=== PATIENT | male | born 1970 | race Caucasian/White ===

== ENCOUNTER 2024-11-15 12:11 | Inpatient (IN) | payer OTHER ==
[2024-11-15 12:31] VITALS: BMI 22.9
[2024-11-15] MEDS ORDERED: DICYCLOMINE HCL 10 MG CAPSULE PO PRN (12:46)
[2024-11-15] MEDS ORDERED: LOPERAMIDE HCL 2 MG CAPSULE PO PRN (12:46)
[2024-11-15] MEDS ORDERED: BENZOCAINE/MENTHOL (CHLORASEPTIC ) LOZENGE MM PRN (12:46)
[2024-11-15] MEDS ORDERED: MAGNESIUM HYDROX 2400MG/30ML ORAL SUSPENSION 30 ML CUP PO PRN (12:46)
[2024-11-15] MEDS ORDERED: MAG HYDROX/AL HYDROX/SIMETH 30 ML UNIT-DOSE CUP PO PRN (12:46)
[2024-11-15] MEDS ORDERED: hydrOXYzine PAMOATE 25 MG CAPSULE (FP) PO PRN (12:46)
[2024-11-15] MEDS ORDERED: ONDANSETRON *ODT* 4 MG TABLET SL PRN (12:46)
[2024-11-15] MEDS ORDERED: BENZONATATE 200 MG CAPSULE PO PRN (12:46)
[2024-11-15] MEDS ORDERED: IBUPROFEN 400 MG TABLET (FP) PO PRN (12:46)
[2024-11-15] MEDS ORDERED: ACETAMINOPHEN 325 MG TABLET (FP) PO PRN (12:46)
[2024-11-15] MEDS ORDERED: BISMUTH SUBSALICYLATE 524 MG/30 ML PO PRN (12:46)
[2024-11-15] MEDS ORDERED: METHOCARBAMOL 500 MG TABLET PO PRN (12:46)
[2024-11-15] MEDS ORDERED: POLYETHYLENE GLYCOL (HEALTHYLAX) 3350 17 GM PACKET PO PRN (12:46)
[2024-11-15] MEDS ORDERED: guaiFENesin 600 MG TABLET.ER (FP) PO PRN (12:46)
[2024-11-15] MEDS ORDERED: NALOXONE (NARCAN) HCL 4 MG/0.1 ML SPRAY NS PRN (12:46)
[2024-11-15] MEDS ORDERED: amLODIPine BESYLATE 5 MG TABLET (FP) ONE ×2 (13:35→13:39)
[2024-11-15] MEDS ORDERED: diazePAM 5 MG TABLET ONE (13:35)
[2024-11-15] MEDS: amLODIPine BESYLATE 5 MG TABLET (FP) PO ONE (13:38)
[2024-11-15] MEDS: diazePAM 5 MG TABLET PO SCH (13:39)
[2024-11-15] MEDS: ACAMPROSATE CALCIUM 333 MG TABLET.DR PO SCH (13:57)
[2024-11-15] MEDS ORDERED: methaDONE HCL 10 MG TABLET PO ONE (17:00)
[2024-11-15] MEDS: MELATONIN 5 MG TABLETS PO SCH (22:07)
[2024-11-15] MEDS: MIRTAZAPINE 15 MG TABLET (FP) PO SCH (22:07)
[2024-11-15] MEDS: QUEtiapine FUMARATE 100 MG TABLET (FP) PO SCH (22:07)
[2024-11-15] MEDS: THIAMINE 100 MG TABLET PO SCH (22:07)
[2024-11-16] MEDS ORDERED: methaDONE HCL 10 MG TABLET PO SCH ×2 (06:00→15:00)
[2024-11-16 10:16] LABS: POTASSIUM 4.2 mmol/L (3.5-5.1)
[2024-11-16 10:20] LABS: ALBUMIN 3.3 g/dl (3.4-5.0)
[2024-11-16 10:22] LABS: HEMATOCRIT 38.2 % (35.4-49); HEMOGLOBIN 12.7 GM/dL (11.7-16.9); MCH 27.4 pg (25.7-33.7); MCHC 33.2 g/dl (32.0-35.9); MEAN CELL VOLUME 82.5 fl (80-96); MEAN PLT VOLUME 9.7 fl (7.5-11.1); PLATELET COUNT 175 10^3/uL (134-434); RBC 4.62 M/mm3 (4.00-5.60); RDW 15.9 % (11.9-15.9); WHITE BLOOD COUNT 6.7 K/mm3 (4.0-10.0)
[2024-11-16 10:23] LABS: CREATININE 0.6 mg/dL (0.55-1.3)
[2024-11-16 10:24] LABS: BILIRUBIN,TOTAL 0.4 mg/dL (0.2-1); TOT PROT 6.4 g/dl (6.4-8.2)
[2024-11-16 10:26] LABS: BLOOD UREA NITROGEN 11.2 mg/dL (7-18)
[2024-11-16] MEDS: PRENATAL VITAMINS W/ FOLIC ACID TABLET (FP) PO SCH (10:26)
[2024-11-16] MEDS: amLODIPine BESYLATE 10 MG TABLET (FP) PO SCH (10:26)
[2024-11-16] MEDS: IBUPROFEN 600 MG TABLET (FP) PO PRN (17:34)
[2024-11-16] MEDS: DIVALPROEX SODIUM 500 MG TABLET E.C. PO SCH (22:12)
[2024-11-16] MEDS: QUEtiapine FUMARATE 100 MG TABLET (FP) PO SCH (22:12)
[2024-11-17] MEDS: diazePAM 5 MG TABLET PO SCH (05:43)
[2024-11-17] MEDS: NICOTINE POLACRILEX 2 MG GUM BUC PRN (14:07)
[2024-11-18] MEDS: diazePAM 5 MG TABLET PO SCH (06:02)
[2024-11-18] MEDS: diazePAM 5 MG TABLET PO PRN (10:32)
[2024-11-19] MEDS: diazePAM 5 MG TABLET PO ONE (05:29)
[2024-11-19 06:24] VITALS: RESP 16
[2024-11-19 09:30] VITALS: BP 114/63; PULSE 72; TEMP 97.8
== END 2024-11-19 11:57 | disposition other institution (70) | DRG 773 ==
LOC: YASAS 12:11 → Y3N 13:29
PROVIDERS: ADMIT Allergy & Immunology; ATTEND Allergy & Immunology
PROC: HZ2ZZZZ Detoxification Services for Substance Abuse Treatment (ICD-10-PCS; principal; 2024-11-15)
DX: F10.230 Alcohol dependence with withdrawal, uncomplicated (principal); F13.230 Sedative, hypnotic or anxiolytic dependence with withdrawal, uncomplicated; F11.20 Opioid dependence, uncomplicated; F14.20 Cocaine dependence, uncomplicated; F17.210 Nicotine dependence, cigarettes, uncomplicated; F31.9 Bipolar disorder, unspecified; F25.9 Schizoaffective disorder, unspecified; I10 Essential (primary) hypertension
CPT/HCPCS: 36415; 80053; 80305; 80307; 85027; 86780; 93005; 93010

== ENCOUNTER 2024-11-19 12:01 | Inpatient (IN) | payer OTHER ==
[2024-11-19] MEDS ORDERED: NALOXONE HCL 0.4 MG/ML VIAL IVPUSH PRN (13:57)
[2024-11-19] MEDS ORDERED: BENZOCAINE/MENTHOL (CHLORASEPTIC ) LOZENGE MM PRN (13:57)
[2024-11-19] MEDS ORDERED: NALOXONE (NARCAN) HCL 4 MG/0.1 ML SPRAY NS PRN (13:57)
[2024-11-19] MEDS ORDERED: POLYETHYLENE GLYCOL (HEALTHYLAX) 3350 17 GM PACKET PO PRN (13:57)
[2024-11-19] MEDS ORDERED: IBUPROFEN 400 MG TABLET (FP) PO PRN (13:57)
[2024-11-19] MEDS ORDERED: BENZONATATE 200 MG CAPSULE PO PRN (13:57)
[2024-11-19] MEDS ORDERED: ACETAMINOPHEN 325 MG TABLET (FP) PO PRN (13:57)
[2024-11-19] MEDS ORDERED: guaiFENesin 600 MG TABLET.ER (FP) PO PRN (13:57)
[2024-11-19] MEDS ORDERED: MAGNESIUM HYDROX 2400MG/30ML ORAL SUSPENSION 30 ML CUP PO PRN (13:57)
[2024-11-19] MEDS ORDERED: LOPERAMIDE HCL 2 MG CAPSULE PO PRN (13:57)
[2024-11-19] MEDS ORDERED: methaDONE HCL 10 MG TABLET PO ONE (13:59)
[2024-11-19] MEDS: ACAMPROSATE CALCIUM 333 MG TABLET.DR PO SCH (14:53)
[2024-11-19] MEDS: THIAMINE 100 MG TABLET PO SCH (21:59)
[2024-11-19] MEDS: MELATONIN 5 MG TABLETS PO SCH (21:59)
[2024-11-19] MEDS: DIVALPROEX NA *ER* EXTEND REL 500 MG TABLET.SA (FP) PO SCH (21:59)
[2024-11-19] MEDS: QUEtiapine FUMARATE 100 MG TABLET (FP) PO SCH (21:59)
[2024-11-20] MEDS ORDERED: methaDONE HCL 10 MG TABLET PO SCH (06:00)
[2024-11-20] MEDS: PRENATAL VITAMINS W/ FOLIC ACID TABLET (FP) PO SCH (10:03)
[2024-11-20] MEDS: hydrOXYzine PAMOATE 25 MG CAPSULE (FP) PO PRN (17:43)
[2024-11-20] MEDS: METHOCARBAMOL 500 MG TABLET PO PRN (17:43)
[2024-11-20] MEDS: MAG HYDROX/AL HYDROX/SIMETH 30 ML UNIT-DOSE CUP PO PRN (21:16)
[2024-11-21] MEDS: hydrOXYzine PAMOATE 50 MG CAPSULE (FP) PO PRN (14:46)
[2024-11-21] MEDS: QUEtiapine FUMARATE 200 MG TABLET PO SCH (21:12)
[2024-11-22] MEDS: QUEtiapine FUMARATE 300 MG TABLET PO SCH (21:16)
[2024-11-23] MEDS: PALIPERIDONE 6 MG PO SCH (12:15)
[2024-11-23] MEDS ORDERED: QUEtiapine FUMARATE 100 MG TABLET (FP) ONE (21:12)
[2024-11-24] MEDS: NICOTINE POLACRILEX 2 MG GUM BUC PRN (14:08)
[2024-11-25] MEDS ORDERED: QUEtiapine FUMARATE 100 MG TABLET (FP) ONE (19:47)
[2024-11-26] MEDS: IBUPROFEN 600 MG TABLET (FP) PO PRN (11:12)
[2024-11-26] MEDS ORDERED: QUEtiapine FUMARATE 100 MG TABLET (FP) ONE (20:15)
[2024-11-27] MEDS: BACLOFEN 10 MG TABLET (FP) PO SCH (21:24)
[2024-11-28] MEDS: PALIPERIDONE 6 MG TAB.ER.24 PO SCH (10:24)
[2024-11-28 13:06] LABS: POTASSIUM 4.2 mmol/L (3.5-5.1)
[2024-11-28 13:12] LABS: INR 1.05 (0.83-1.09); PROTHROMBIN TIME (PATIENT) 11.6 SEC (9.7-13.0)
[2024-11-28 13:13] LABS: CALCIUM 9.3 mg/dL (8.5-10.1)
[2024-11-28 13:14] LABS: ALBUMIN 3.2 g/dl (3.4-5.0); BLOOD UREA NITROGEN 18.7 mg/dL (7-18); MAGNESIUM 1.9 mg/dL (1.8-2.4)
[2024-11-28 13:17] LABS: CREATININE 0.8 mg/dL (0.55-1.3)
[2024-11-28 13:18] LABS: BILIRUBIN,TOTAL 0.6 mg/dL (0.2-1); TOT PROT 6.3 g/dl (6.4-8.2)
[2024-11-28] MEDS: GABAPENTIN 100 MG CAPSULE PO SCH (14:10)
[2024-11-28] MEDS: hydrOXYzine PAMOATE 50 MG CAPSULE (FP) PO PRN (15:44)
[2024-11-28] MEDS: MELATONIN 5 MG TABLETS PO SCH (21:11)
[2024-11-29] MEDS: GABAPENTIN 100 MG CAPSULE PO SCH (13:52)
[2024-11-29] MEDS: SUVOREXANT 5 MG TABLET PO PRN (21:31)
[2024-12-01] MEDS ORDERED: QUEtiapine FUMARATE 100 MG TABLET (FP) ONE (20:25)
[2024-12-01] MEDS ORDERED: SUVOREXANT 10 MG TABLET PO PRN ×2 (22:00)
[2024-12-01] MEDS ORDERED: SUVOREXANT 5 MG TABLET PO PRN (22:00)
[2024-12-02] MEDS ORDERED: QUEtiapine FUMARATE 100 MG TABLET (FP) ONE (21:03)
[2024-12-03 06:44] VITALS: RESP 17
[2024-12-04 05:41] VITALS: BP 102/57; PULSE 60; TEMP 97.5
[2024-12-04] MEDS ORDERED: SUVOREXANT 5 MG TABLET PO PRN (22:00)
== END 2024-12-04 09:27 | disposition home or self-care (01) | DRG 772 ==
LOC: YASAS 12:01 → Y3NR 12:02 → Y3W 11-20 10:21
PROVIDERS: ADMIT Allergy & Immunology; ATTEND Psychiatry & Neurology Pain Medicine
PROC: HZ42ZZZ Group Counseling for Substance Abuse Treatment, Cognitive-Behavioral (ICD-10-PCS; principal; 2024-11-19)
DX: F11.20 Opioid dependence, uncomplicated (principal); F10.20 Alcohol dependence, uncomplicated; F13.20 Sedative, hypnotic or anxiolytic dependence, uncomplicated; F14.20 Cocaine dependence, uncomplicated; F17.210 Nicotine dependence, cigarettes, uncomplicated; F25.9 Schizoaffective disorder, unspecified; F19.282 Other psychoactive substance dependence with psychoactive substance-induced sleep disorder; F19.280 Other psychoactive substance dependence with psychoactive substance-induced anxiety disorder; F19.24 Other psychoactive substance dependence with psychoactive substance-induced mood disorder; I10 Essential (primary) hypertension; Z86.19 Personal history of other infectious and parasitic diseases
CPT/HCPCS: 36415; 80053; 82140; 83735; 85610; 86803; 87522; 87811; J0475

== ENCOUNTER 2025-01-29 11:43 | Inpatient (IN) | payer OTHER ==
[2025-01-29 12:16] VITALS: BMI 24.7
[2025-01-29] MEDS ORDERED: MAG HYDROX/AL HYDROX/SIMETH 30 ML UNIT-DOSE CUP PO PRN (12:48)
[2025-01-29] MEDS ORDERED: IBUPROFEN 400 MG TABLET (FP) PO PRN (12:48)
[2025-01-29] MEDS ORDERED: MAGNESIUM HYDROX 2400MG/30ML ORAL SUSPENSION 30 ML CUP PO PRN (12:48)
[2025-01-29] MEDS ORDERED: NALOXONE (NARCAN) HCL 4 MG/0.1 ML SPRAY NS PRN (12:48)
[2025-01-29] MEDS ORDERED: BENZONATATE 200 MG CAPSULE PO PRN (12:48)
[2025-01-29] MEDS ORDERED: ONDANSETRON *ODT* 4 MG TABLET SL PRN (12:48)
[2025-01-29] MEDS ORDERED: guaiFENesin 600 MG TABLET.ER (FP) PO PRN (12:48)
[2025-01-29] MEDS ORDERED: ACETAMINOPHEN 325 MG TABLET (FP) PO PRN (12:48)
[2025-01-29] MEDS ORDERED: BENZOCAINE/MENTHOL (CHLORASEPTIC ) LOZENGE MM PRN (12:48)
[2025-01-29] MEDS ORDERED: IBUPROFEN 600 MG TABLET (FP) PO PRN (12:48)
[2025-01-29] MEDS ORDERED: BISMUTH SUBSALICYLATE 524 MG/30 ML PO PRN (12:48)
[2025-01-29] MEDS ORDERED: LOPERAMIDE HCL 2 MG CAPSULE PO PRN (12:48)
[2025-01-29] MEDS ORDERED: POLYETHYLENE GLYCOL (HEALTHYLAX) 3350 17 GM PACKET PO PRN (12:48)
[2025-01-29] MEDS ORDERED: DICYCLOMINE HCL 10 MG CAPSULE PO PRN (12:48)
[2025-01-29] MEDS: ACAMPROSATE CALCIUM 333 MG TABLET.DR PO SCH (14:32)
[2025-01-29] MEDS: diazePAM 5 MG TABLET PO SCH (17:40)
[2025-01-29] MEDS: THIAMINE 100 MG TABLET PO SCH (22:44)
[2025-01-29] MEDS: MIRTAZAPINE 15 MG TABLET (FP) PO SCH (22:44)
[2025-01-29] MEDS: MELATONIN 5 MG TABLETS PO SCH (22:46)
[2025-01-30] MEDS ORDERED: methaDONE HCL 10 MG TABLET PO SCH (06:00)
[2025-01-30] MEDS ORDERED: NICOTINE 14 MG/24 HOURS TOPICAL PATCH TD SCH (10:00)
[2025-01-30] MEDS: PRENATAL VITAMINS W/ FOLIC ACID TABLET (FP) PO SCH (10:18)
[2025-01-30] MEDS: DIVALPROEX SODIUM 500 MG TABLET E.C. PO SCH (13:39)
[2025-01-30] MEDS: diazePAM 5 MG TABLET PO PRN (13:41)
[2025-01-30 15:06] LABS: MEAN CELL VOLUME 86.4 fl (79.0-92.2)
[2025-01-30 15:07] LABS: HEMATOCRIT 43.1 % (40.1-51.0); MCHC 32.5 g/dl (32.3-36.5)
[2025-01-30 15:14] LABS: POTASSIUM 4.6 mmol/L (3.5-5.1)
[2025-01-30 15:37] LABS: ALBUMIN 3.9 g/dl (3.4-5.0)
[2025-01-30 15:38] LABS: BLOOD UREA NITROGEN 12.5 mg/dL (7-18); CALCIUM 9.6 mg/dL (8.5-10.1)
[2025-01-30 15:41] LABS: CREATININE 0.8 mg/dL (0.55-1.3)
[2025-01-30 15:43] LABS: BILIRUBIN,TOTAL 0.6 mg/dL (0.2-1); TOT PROT 7.4 g/dl (6.4-8.2)
[2025-01-30] MEDS: METHOCARBAMOL 500 MG TABLET PO PRN (22:13)
[2025-01-30] MEDS: QUEtiapine FUMARATE 200 MG TABLET PO SCH (22:13)
[2025-01-31] MEDS: diazePAM 5 MG TABLET PO SCH (05:38)
[2025-01-31] MEDS: NICOTINE POLACRILEX 2 MG GUM BUC PRN (17:20)
[2025-02-01] MEDS: diazePAM 5 MG TABLET PO SCH (05:35)
[2025-02-01 17:39] VITALS: RESP 16
[2025-02-02] MEDS: diazePAM 5 MG TABLET PO ONE (05:45)
[2025-02-02] MEDS: hydrOXYzine PAMOATE 25 MG CAPSULE (FP) PO PRN (10:14)
[2025-02-02 13:14] VITALS: BP 107/60; PULSE 76; TEMP 97.6
== END 2025-02-02 14:49 | disposition home or self-care (01) | DRG 773 ==
LOC: YASAS 11:43 → Y6N 13:54
PROVIDERS: ADMIT Allergy & Immunology; ATTEND Allergy & Immunology
PROC: HZ2ZZZZ Detoxification Services for Substance Abuse Treatment (ICD-10-PCS; principal; 2025-01-29)
DX: F10.20 Alcohol dependence, uncomplicated (principal); F13.230 Sedative, hypnotic or anxiolytic dependence with withdrawal, uncomplicated; F11.20 Opioid dependence, uncomplicated; F14.10 Cocaine abuse, uncomplicated; F17.210 Nicotine dependence, cigarettes, uncomplicated; F31.9 Bipolar disorder, unspecified; F19.282 Other psychoactive substance dependence with psychoactive substance-induced sleep disorder; F19.280 Other psychoactive substance dependence with psychoactive substance-induced anxiety disorder; F19.24 Other psychoactive substance dependence with psychoactive substance-induced mood disorder; F90.9 Attention-deficit hyperactivity disorder, unspecified type; I10 Essential (primary) hypertension; Z86.19 Personal history of other infectious and parasitic diseases
CPT/HCPCS: 36415; 80053; 80305; 80307; 85027; 86780; 86803; 87522; 87811; 93005; 93010

== ENCOUNTER 2025-05-11 13:59 | Inpatient (IN) | payer OTHER ==
[2025-05-11 14:34] VITALS: BMI 22.4
[2025-05-11] MEDS ORDERED: BISMUTH SUBSALICYLATE 524 MG/30 ML PO PRN (15:08)
[2025-05-11] MEDS ORDERED: POLYETHYLENE GLYCOL (HEALTHYLAX) 3350 17 GM PACKET PO PRN (15:08)
[2025-05-11] MEDS ORDERED: LOPERAMIDE HCL 2 MG CAPSULE PO PRN (15:08)
[2025-05-11] MEDS ORDERED: IBUPROFEN 400 MG TABLET (FP) PO PRN (15:08)
[2025-05-11] MEDS ORDERED: ACETAMINOPHEN 325 MG TABLET (FP) PO PRN (15:08)
[2025-05-11] MEDS ORDERED: MAG HYDROX/AL HYDROX/SIMETH 30 ML UNIT-DOSE CUP PO PRN (15:08)
[2025-05-11] MEDS ORDERED: IBUPROFEN 600 MG TABLET (FP) PO PRN (15:08)
[2025-05-11] MEDS ORDERED: NALOXONE (NARCAN) HCL 4 MG/0.1 ML SPRAY NS PRN (15:08)
[2025-05-11] MEDS ORDERED: BENZONATATE 200 MG CAPSULE PO PRN (15:08)
[2025-05-11] MEDS ORDERED: DICYCLOMINE HCL 10 MG CAPSULE PO PRN (15:08)
[2025-05-11] MEDS ORDERED: MAGNESIUM HYDROX 2400MG/30ML ORAL SUSPENSION 30 ML CUP PO PRN (15:08)
[2025-05-11] MEDS ORDERED: guaiFENesin 600 MG TABLET.ER (FP) PO PRN (15:08)
[2025-05-11] MEDS ORDERED: ONDANSETRON *ODT* 4 MG TABLET SL PRN (15:08)
[2025-05-11] MEDS ORDERED: BENZOCAINE/MENTHOL (CHLORASEPTIC ) LOZENGE MM PRN (15:08)
[2025-05-11] MEDS ORDERED: PRENATAL VITAMINS W/ FOLIC ACID TABLET (FP) PO ONE (16:40)
[2025-05-11] MEDS: PRENATAL VITAMINS W/ FOLIC ACID TABLET (FP) PO SCH (16:43)
[2025-05-11] MEDS: THIAMINE 100 MG TABLET PO SCH (22:09)
[2025-05-11] MEDS: MELATONIN 5 MG TABLETS PO SCH (22:09)
[2025-05-11] MEDS: DIVALPROEX SODIUM 500 MG TABLET E.C. PO SCH (22:11)
[2025-05-11] MEDS: MIRTAZAPINE 15 MG TABLET (FP) PO SCH (22:11)
[2025-05-11] MEDS: ACAMPROSATE CALCIUM 333 MG TABLET.DR PO SCH (22:11)
[2025-05-12 10:19] LABS: MEAN CELL VOLUME 87.4 fl (79.0-92.2); RDW 13.9 % (12.2-16.1)
[2025-05-12 10:21] LABS: MCHC 31.6 g/dl (32.3-36.5)
[2025-05-12 10:31] LABS: GLUCOSE,RANDOM 110.0 mg/dL (74-106)
[2025-05-12 10:32] LABS: TOT PROT 6.2 g/dl (6.4-8.2)
[2025-05-12 10:33] LABS: CO2 27.0 mmol/L (21-32)
[2025-05-12 10:34] LABS: ALK PHOS 51.0 U/L (40-150)
[2025-05-12 10:37] LABS: CREATININE 0.64 mg/dL (0.55-1.3); SGOT/AST 17.0 U/L (5-34); SGPT/ALT 11.0 U/L (0-55)
[2025-05-12 10:53] LABS: MEAN PLT VOLUME 11.0 fl (9.4-12.4)
[2025-05-13] MEDS: hydrOXYzine PAMOATE 25 MG CAPSULE (FP) PO PRN (15:50)
[2025-05-13] MEDS: METHOCARBAMOL 500 MG TABLET PO PRN (22:09)
[2025-05-14 17:11] VITALS: RESP 16
[2025-05-15 12:42] VITALS: BP 124/67; PULSE 63; TEMP 98
== END 2025-05-15 13:47 | disposition other institution (70) | DRG 773 ==
LOC: YASAS 13:59 → Y6N 16:32
PROVIDERS: ADMIT Neuromusculoskeletal Medicine & OMM; ATTEND Student in an Organized Health Care Education/Training Program
PROC: HZ2ZZZZ Detoxification Services for Substance Abuse Treatment (ICD-10-PCS; principal; 2025-05-11)
DX: F11.23 Opioid dependence with withdrawal (principal); F14.20 Cocaine dependence, uncomplicated; F13.20 Sedative, hypnotic or anxiolytic dependence, uncomplicated; F17.210 Nicotine dependence, cigarettes, uncomplicated; F19.282 Other psychoactive substance dependence with psychoactive substance-induced sleep disorder; F19.280 Other psychoactive substance dependence with psychoactive substance-induced anxiety disorder; F19.24 Other psychoactive substance dependence with psychoactive substance-induced mood disorder; Z86.19 Personal history of other infectious and parasitic diseases
CPT/HCPCS: 36415; 80053; 80307; 85027; 86780; 93005; 93010